=== PATIENT | female | born 1980 | race Caucasian/White ===

== ENCOUNTER → 2018-05-18 | Outpatient (CLI) | payer OTHER ==
[~2018-05-18] MED LIST: CIPRO250 MG PO; FLONASE0.05 MG/AC INH; NEXIUM40 MG PO; PERCOCET 325 MG1 TA5 PO; SYNTHROID,LEVO88 MCG PO
== END | disposition home or self-care (01) ==
LOC: MAMMO 12:59 → US 14:00
DX: N63.12 Unspecified lump in the right breast, upper inner quadrant (principal)